=== PATIENT | female | born 1970 | race Hispanic/Latino ===

== ENCOUNTER 2022-05-10 17:50 | Emergency (ER) | payer BC, OTHER ==
[2022-05-10 18:44] LABS: Urine Blood Trace-intact (Negative); Urine Glucose Negative (Negative); Urine Protein 1+ (Negative); Urine Specific Gravity 1.025 (1.005-1.030)
[2022-05-10 18:49] LABS: Absolute Lymphocytes (CBC) 0.5 K/uL (0.7-4.9); Hematocrit 42.2 % (36.0-45.0); Lymphocytes % 7.3 % (15.3-44.8); MCV 88.3 fL (80-100); MPV 8.7 fL (7.6-11.3); RBC Red Blood Cell Count 4.78 M/uL (3.86-4.86)
[2022-05-10] MEDS ORDERED: ONDANSETRON 4 MG/2 ML VIAL ONE ×2 (18:52→22:08)
[2022-05-10] MEDS ORDERED: KETOROLAC 30 MG/ML INJ ONE (18:52)
[2022-05-10 18:53] LABS: Protime INR 1.17
[2022-05-10] MEDS ORDERED: NA CHLORIDE 0.9% 1,000 ML ONE (18:53)
[2022-05-10 19:02] LABS: SARS-CoV-2 Antigen Rapid Res Negative (Negative)
[2022-05-10 19:06] LABS: Bilirubin Total 0.3 mg/dL (0.2-1.0); Potassium 3.4 mmol/L (3.5-5.1); Protein, Total 8.3 g/dL (6.4-8.2)
[2022-05-10 19:46] LABS: Urine Crystals Unidentified Few /HPF (None Seen); Urine Mucus 1+ /HPF (None Seen); Urine RBC 21-50 /HPF (None Seen); Urine WBC Clump Rare /HPF (None Seen)
[2022-05-10] MEDS ORDERED: HYOSCYAMINE SULF 0.125 MG TAB ONE (19:56)
--- NOTE | 2022-05-10 22:12 | ER ---
Nurse's Notes [facility] Name: Nydia Tyler Age: 52 yrs Sex: Female : 1970 Arrival Date: 05/10/2022 Time: 17:51 Bed 27 Private MD: Diagnosis: Nausea with vomiting, unspecified;Diarrhea, unspecified;Probable Food poisoning Presentation: 05/10 18:00 Chief complaint: Patient states: she was with a group of friends, who have all ended up ap3 with the stomach bug. patient states she has been having nausea, vomiting, \\T\\ Diarrhea since yesterday along with decreased appetite. Coronavirus screen: At this time, the client does not indicate any symptoms associated with coronavirus-19. Ebola Screen: No symptoms or risks identified at this time. Initial Sepsis Screen: Does the patient meet any 2 criteria? No. Patient's initial sepsis screen is negative. Does the patient have a suspected source of infection? No. Patient's initial sepsis screen is negative. Risk Assessment: Do you want to hurt yourself or someone else? Patient reports no desire to harm self or others. Onset of symptoms was May 09, 2022. 18:00 Method Of Arrival: Ambulatory ap3 18:00 Acuity: JEFFERY 3 ap3 Triage Assessment: 18:02 General: Appears ill, Behavior is crying. General: Reports chills for fever for feeling ap3 ill for fatigue for. Pain: Complains of pain in generalized body aches. Neuro: Level of Consciousness is awake, alert, obeys commands, Oriented to person, place, time, situation, Gait is steady, Speech is normal. Cardiovascular: Patient's skin is warm and dry. Respiratory: Airway is patent Respiratory effort is even, unlabored, Respiratory pattern is regular, symmetrical. GI: Reports diarrhea, nausea, vomiting. 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 - Social history:: Smoking status: Patient denies any tobacco usage or history of. Screenin:03 Abuse screen: Denies threats or abuse. Nutritional screening: No deficits noted. ap3 Tuberculosis screening: No symptoms or risk factors identified. Fall Risk None identified. Assessment: 18:15 Reassessment: No changes from previously documented assessment. General: Appears in no kb3 apparent distress. Behavior is calm, cooperative. General: Received care of pt after she came to ED with her spouse. They attended a function on Sat night and 16 others have come down with similar symptoms of N/V/D and abdominal cramping. Pt began experiencing N/V/D around 1000 today.. 18:15 GI: Abdomen is round Bowel sounds present X 4 quads. Abd is soft X 4 quads Abdomen is kb3 tender to palpation in epigastric area Reports upper abdominal pain, cramping, diarrhea, nausea, vomiting. 21:02 General: Pt resting quietly, no distress. States feeling better, nausea is resolved, kb3 "just tired.". 22:00 General: Pt states feeling much better. Nausea/vomiting has resolved. Discussed clear kb3 liquid diet tonight and advance as tolerated tomorrow.. Vital Signs: 14:50 BP 101 / 63; Pulse 81; Resp 18; Pulse Ox 100% ; kb3 18:00 BP 101 / 59; Pulse 92; Resp 17; Temp 99.2; Pulse Ox 100% ; Weight 78.02 kg; Height 5 ap3 ft. 2 in. (157.48 cm); 18:45 BP 105 / 67; Pulse 86; Resp 20; Pulse Ox 99% ; kb3 19:15 BP 100 / 60; Pulse 85; Resp 20; Pulse Ox 100% ; kb3 20:15 BP 102 / 59; Pulse 78; Resp 16; Pulse Ox 100% ; kb3 21:00 BP 100 / 64; Pulse 74; Resp 18; Pulse Ox 98% ; kb3 22:00 BP 101 / 61; Pulse 71; Resp 18; Pulse Ox 98% ; kb3 18:00 Body Mass Index 31.46 (78.02 kg, 157.48 cm) ap3 ED Course: 17:51 Patient arrived in ED. as 17:58 Neyda Adames FNP-C is [facility]. snw 17:58 Higinio Carlin MD is Attending Physician. snw 18:01 Triage completed. ap3 18:03 Arm band placed on right wrist. ap3 18:15 Patient has correct armband on for positive identification. Placed in gown. Bed in low kb3 position. Call light in reach. Side rails up X2. Client placed on continuous cardiac and pulse oximetry monitoring. NIBP monitoring applied. Warm blanket given. 18:15 No provider procedures requiring assistance completed. Inserted saline lock: 20 gauge kb3 in right antecubital area, using aseptic technique. Blood collected. 18:36 Lisbet Paredes, RN is Primary Nurse. kb3 19:00 SARS RAPID Sent. kb3 22:19 IV discontinued, intact, bleeding controlled, No redness/swelling at site. kb3 Administered Medications: 19:00 Drug: NS 0.9% 1000 ml {Note: Per Neyda Adames PHYSIOLOGICAL CHEMIST. ordering provider, NS is to be given kb3 as a bolus at this time.} Route: IV; Rate: 125 ml/hr; Site: right antecubital; 22:00 Follow up: Response: No adverse reaction; IV Status: Completed infusion; IV Intake: kb3 1000ml 19:00 Drug: Zofran (Ondansetron) 4 mg Route: IVP; Site: right antecubital; kb3 20:21 Follow up: Response: No adverse reaction; Nausea is decreased kb3 19:00 Drug: Ketorolac 30 mg Route: IVP; Site: right antecubital; kb3 20:20 Follow up: Response: No adverse reaction; Pain is decreased kb3 20:14 Drug: Levsin (hyoscyamine) 0.125 mg 1 tabs Route: Sublingual; kl 20:20 Follow up: Response: No adverse reaction; Pain is decreased kb3 22:13 Drug: Zofran (Ondansetron) 4 mg Route: IVP; Site: right antecubital; kb3 22:17 Follow up: Response: No adverse reaction; Medication administered at discharge. kb3 Medication: 18:03 VIS not applicable for this client. ap3 Intake: 22:00 IV: 1000ml; Total: 1000ml. kb3 Outcome: 22:11 Discharge ordered by . josh 22:18 Discharged to home with family. kb3 22:18 Condition: stable 22:18 Discharge instructions given to patient, Instructed on discharge instructions, follow up and referral plans. medication usage, Demonstrated understanding of instructions, follow-up care, medications, Prescriptions given X 2. 22:20 Patient left the ED. kb3 Signatures: Mattie Vo, RN RN Neyda Cornejo, TERRAZZO FINISHER-C TERRAZZO FINISHER-Csnw Mally Stanton Amanda RN RN ap3 Lisbet Paredes RN RN kb3
--- NOTE | 2022-05-10 22:12 | EDPHYS ---
Physician Documentation [facility] Name: Nydia Tyler Age: 52 yrs Sex: Female : 1970 Arrival Date: 05/10/2022 Time: 17:51 Bed 27 Private MD: ED Physician Higinio Carlin HPI: 05/10 18:17 This 52 yrs old Female presents to ER via Ambulatory with complaints of snw Decreased Appetite, Nausea/Vomiting/Diarrhea, fatigue. 18:17 The patient presents to the emergency department with nausea, vomiting, diarrhea. snw Onset: The symptoms/episode began/occurred suddenly, today. Possible causes: bad food exposure. Associated signs and symptoms: Pertinent positives: anorexia, diarrhea, nausea, vomiting, Pertinent negatives: GI bleeding. Severity of symptoms: At their worst the symptoms were severe in the emergency department the symptoms are unchanged. The patient has not experienced similar symptoms in the past. It is unknown whether or not the patient has recently seen a physician. Pt and Spouse went to a family gathering, 16 people with severe N/V/D. suspect lozada was bad. 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 - Social history:: Smoking status: Patient denies any tobacco usage or history of. ROS: 18:17 Eyes: Negative for injury, pain, redness, and discharge, ENT: Negative for injury, snw pain, and discharge, Neck: Negative for injury, pain, and swelling, Cardiovascular: Negative for chest pain, palpitations, and edema, Respiratory: Negative for shortness of breath, cough, wheezing, and pleuritic chest pain. 18:17 Back: Negative for injury and pain, : Negative for injury, bleeding, discharge, and swelling, MS/Extremity: Negative for injury and deformity, Skin: Negative for injury, rash, and discoloration, Neuro: Negative for headache, weakness, numbness, tingling, and seizure. 18:17 Constitutional: Positive for body aches, fever, malaise, poor PO intake. 18:17 Abdomen/GI: Positive for nausea, vomiting, and diarrhea. Exam: 18:16 Head/Face: Normocephalic, atraumatic. Eyes: Pupils equal round and reactive to light, snw extra-ocular motions intact. Lids and lashes normal. Conjunctiva and sclera are non-icteric and not injected. Cornea within normal limits. Periorbital areas with no swelling, redness, or edema. ENT: Nares patent. No nasal discharge, no septal abnormalities noted. Tympanic membranes are normal and external auditory canals are clear. Oropharynx with no redness, swelling, or masses, exudates, or evidence of obstruction, uvula midline. Mucous membranes moist. Neck: Trachea midline, no thyromegaly or masses palpated, and no cervical lymphadenopathy. Supple, full range of motion without nuchal rigidity, or vertebral point tenderness. No Meningismus. Chest/axilla: Normal chest wall appearance and motion. Nontender with no deformity. No lesions are appreciated. 18:16 Respiratory: Lungs have equal breath sounds bilaterally, clear to auscultation and percussion. No rales, rhonchi or wheezes noted. No increased work of breathing, no retractions or nasal flaring. 18:16 Back: No spinal tenderness. No costovertebral tenderness. Full range of motion. MS/ Extremity: Pulses equal, no cyanosis. Neurovascular intact. Full, normal range of motion. Neuro: Awake and alert, GCS 15, oriented to person, place, time, and situation. Cranial nerves II-XII grossly intact. Motor strength 5/5 in all extremities. Sensory grossly intact. Cerebellar exam normal. Normal gait. 18:16 Constitutional: The patient appears listless, pale, uncomfortable. 18:16 Cardiovascular: Rate: tachycardic, Rhythm: regular. 18:16 Abdomen/GI: Inspection: abdomen appears normal, Bowel sounds: active, all quadrants. 18:16 Skin: Appearance: Color: pale. Vital Signs: 14:50 BP 101 / 63; Pulse 81; Resp 18; Pulse Ox 100% ; kb3 18:00 BP 101 / 59; Pulse 92; Resp 17; Temp 99.2; Pulse Ox 100% ; Weight 78.02 kg; Height 5 ap3 ft. 2 in. (157.48 cm); 18:45 BP 105 / 67; Pulse 86; Resp 20; Pulse Ox 99% ; kb3 19:15 BP 100 / 60; Pulse 85; Resp 20; Pulse Ox 100% ; kb3 20:15 BP 102 / 59; Pulse 78; Resp 16; Pulse Ox 100% ; kb3 21:00 BP 100 / 64; Pulse 74; Resp 18; Pulse Ox 98% ; kb3 22:00 BP 101 / 61; Pulse 71; Resp 18; Pulse Ox 98% ; kb3 18:00 Body Mass Index 31.46 (78.02 kg, 157.48 cm) ap3 MDM: 18:07 Patient medically screened. snw 21:57 Data reviewed: vital signs, nurses notes. Response to treatment: the patient's symptoms snw have markedly improved after treatment. 22:13 Special discussion: Based on the history and exam findings, there is no indication for snw further emergent testing or inpatient evaluation. I discussed with the patient/guardian the need to see the primary care provider for further evaluation of the symptoms. 05/10 18:08 Order name: Blood Culture Adult (2) snw 05/10 18:08 Order name: CBC with Diff snw 05/10 18:08 Order name: CMP snw 05/10 18:08 Order name: Lactate snw 05/10 18:08 Order name: Protime (+inr) snw 05/10 18:08 Order name: Ptt, Activated snw 05/10 18:08 Order name: Urine Culture snw 05/10 18:08 Order name: Urine Microscopic Only snw 05/10 18:15 Order name: SARS RAPID snw 05/10 18:44 Order name: Urine Dipstick-Ancillary; Complete Time: 18:44 EDMS 05/10 18:50 Order name: CBC with Automated Diff; Complete Time: 18:53 EDMS 05/10 18:53 Order name: Protime (+INR); Complete Time: 18:55 EDMS 05/10 18:54 Order name: PTT, Activated Partial Thromb; Complete Time: 18:55 EDMS 05/10 19:02 Order name: SARS-COV-2 Antigen Rapid; Complete Time: 19:13 EDMS 05/10 18:08 Order name: Accucheck snw 05/10 18:08 Order name: Cardiac monitoring; Complete Time: 19:00 snw 05/10 18:08 Order name: EKG - Nurse/Tech; Complete Time: 19:00 snw 05/10 18:08 Order name: IV Saline Lock - Large Bore; Complete Time: 18:45 snw 05/10 18:08 Order name: Labs collected and sent; Complete Time: 18:45 snw 05/10 18:08 Order name: O2 Per Protocol; Complete Time: 18:45 snw 05/10 18:08 Order name: O2 Sat Monitoring; Complete Time: 18:45 snw 05/10 19:07 Order name: Comprehensive Metabolic Panel; Complete Time: 19:13 EDMS 05/10 19:08 Order name: Lactate; Complete Time: 19:13 EDMS 05/10 19:46 Order name: Urine Microscopic Only; Complete Time: 20:09 EDMS Administered Medications: 19:00 Drug: NS 0.9% 1000 ml {Note: Per Neyda Adames NP. ordering provider, NS is to be given kb3 as a bolus at this time.} Route: IV; Rate: 125 ml/hr; Site: right antecubital; 22:00 Follow up: Response: No adverse reaction; IV Status: Completed infusion; IV Intake: kb3 1000ml 19:00 Drug: Zofran (Ondansetron) 4 mg Route: IVP; Site: right antecubital; kb3 20:21 Follow up: Response: No adverse reaction; Nausea is decreased kb3 19:00 Drug: Ketorolac 30 mg Route: IVP; Site: right antecubital; kb3 20:20 Follow up: Response: No adverse reaction; Pain is decreased kb3 20:14 Drug: Levsin (hyoscyamine) 0.125 mg 1 tabs Route: Sublingual; kl 20:20 Follow up: Response: No adverse reaction; Pain is decreased kb3 22:13 Drug: Zofran (Ondansetron) 4 mg Route: IVP; Site: right antecubital; kb3 22:17 Follow up: Response: No adverse reaction; Medication administered at discharge. kb3 Disposition: 05/11 07:28 PA/LOCK EXPERT's history reviewed, patient interviewed, and examined. Attestation: The patient's [id number] history, exam findings, diagnostics, and a summary of any interventions or procedures was reviewed in detail with Neyda HELLER. Disposition Summary: 05/10/22 22:11 Discharge Ordered Location: Home snw Condition: Stable snw Diagnosis - Nausea with vomiting, unspecified snw - Diarrhea, unspecified snw - Probable Food poisoning snw Followup: snw - With: Emergency Department - When: As needed - Reason: Worsening of condition Followup: snw - With: Private Physician - When: 5 - 6 days - Reason: Recheck today's complaints, Continuance of care, Re-evaluation by your physician Discharge Instructions: - Discharge Summary Sheet snw - Food Choices to Help Relieve Diarrhea, Adult snw - Food Poisoning snw - Nausea and Vomiting, Adult, [id number] snw - Rehydration, Adult snw Forms: - Medication Reconciliation Form snw - Thank You Letter snw - Antibiotic Education snw - Prescription Opioid Use snw Prescriptions: - promethazine 50 mg Rectal suppository - insert 1 suppository by RECTAL route once daily; 12 suppository; Refills: 0, snw Product Selection Permitted - Zofran 4 mg Oral Tablet - take 1 tablet by ORAL route every 12 hours As needed; 20 tablet; Refills: 0, snw Product Selection Permitted Signatures: Dispatcher [employer] Mattie Brown, RN RN kl Neyda Adames, ANALYTICS SPECIALIST-C ANALYTICS SPECIALIST-Csnw Davida Miller RN RN ap3 Higinio Carlin MD MD [id number] Lisbet Paredes RN RN kb3
[2022-05-10 22:35] VITALS: TEMP 99.2
[2022-05-10 22:39] VITALS: BP 100/64; O2SAT 98
--- NOTE | 2022-05-13 14:58 | EKG ---
Test Date: 2022-05-10 Test Time: 18:41:47 Warehouse Supervisor: GRACIELA MEASUREMENT RESULTS: Intervals: Rate: 87 MT: 130 QRSD: 82 QT: 344 QTc: 413 Tonica: P: 50 MT: 130 QRS: 94 T: 32 INTERPRETIVE STATEMENTS: Normal sinus rhythm Rightward axis Nonspecific ST abnormality Abnormal ECG Electronically Signed On 05-13-22 14:56:44 CDT by Yogesh Tan
== END 2022-05-10 22:20 | disposition home or self-care (01) ==
LOC: ER 17:50
DX: R11.2 Nausea with vomiting, unspecified (principal); R19.7 Diarrhea, unspecified; F41.9 Anxiety disorder, unspecified; Z20.822 Contact with and (suspected) exposure to COVID-19
CPT/HCPCS: 96361; 87040 ×2; 87088; 85025; 87086; 36415; 85610; 83605; 85730; 80053; 96375; 96374; 99284; 87811; J7030; J2405 ×2; 81003; 81015; 93005